=== PATIENT | male | born 1975 | race Caucasian/White ===

== ENCOUNTER 2017-06-01 18:57 | Inpatient (IN) | payer OTHER ==
[~2017-06-01] VITALS: Ht 172.7 cm; Wt 117.0 kg
[2017-06-01 19:21] LABS: POINT-OF-CARE METER ID UU13113747
[2017-06-01 20:46] LABS: CHLORIDE 97 mEq/L (99-109); POTASSIUM 3.9 mEq/L (3.7-5.4); SODIUM 132 mEq/L (136-147)
[2017-06-01 20:48] LABS: GLUCOSE 115 mg/dL (70-99)
[2017-06-01 20:49] LABS: ANION GAP 15 MEQ/L (2-14)
[2017-06-01 20:52] LABS: GFR ESTIMATE (CALCULATED) > 59 mL/min/; UREA NITROGEN (BUN) 14 mg/dL (9-23)
[2017-06-01 21:03] LABS: INFLUENZA A VIRAL ANTIGEN NEGATIVE; INFLUENZA B VIRAL ANTIGEN NEGATIVE
[2017-06-01 21:40] LABS: ANISOCYTOSIS 1+; ATYPICAL LYMPHOCYTE 5.2 %; BAND NEUTROPHILS 22.6 % (0-8.0); BASOPHILS 0.9 %; EOSINOPHIL ABS CT 0.2; EOSINOPHILS 1.7 % (0-5.0); HEMATOCRIT 38.6 % (38.0-50.0); HEMATOLOGY COMMENT 1 SN; INSTRUMENT ABS NEUTROPHIL CT 3.3 K/uL; MCH 27.9 PG (29.0-34.0); MCHC 34.5 G/DL (30.0-36.0); MCV 80.9 FL (86-99); MEAN PLAT.VOLUME 9.4 uM^3 (9.0-12.4); METAMYELOCYTES 3.5 %; NRBC (%) 0.9 /100 WBC (0-0); NUCLEATED RBC'S 0.9; PLAT.SUFFICIENCY DECREASED; PLATELET COUNT 136 K/uL (156-360); RBC DIS.WIDTH-CV 12.8 % (11.8-14.6); RBC DIS.WIDTH-SD 37.3 % (39-53); RED BLOOD COUNT 4.77 M/uL (4.00-5.50); SEG.NEUTROPHILS 19.1 % (46.0-76.0); WHITE BLOOD COUNT 9.7 K/uL (4.1-10.2)
[2017-06-02] MEDS ORDERED: ONDANSETRON HCL8 MG PO (00:36)
[2017-06-02] MEDS ORDERED: LORAZEPAM1 MG PO (00:38)
[2017-06-02] MEDS ORDERED: OXYCODONE HCL15 MG PO (00:43)
[2017-06-02] MEDS ORDERED: ZESTORETIC 10-1 EAC1 PO (00:43)
[2017-06-02] MEDS ORDERED: ATARAX,VISTARIL25 MG PO (00:44)
[2017-06-02] MEDS ORDERED: ESOMEPRAZOLE MA40 MG PO (00:45)
[2017-06-02] MEDS ORDERED: METFORMIN HCL500 MG PO (00:46)
[2017-06-02] MEDS ORDERED: RANITIDINE HCL300 MG PO (00:47)
[2017-06-02] MEDS ORDERED: CITALOPRAM HBR40 MG PO (00:47)
[2017-06-02] MEDS ORDERED: ATARAX,VISTARIL50 MG PO (00:49)
[2017-06-02] MEDS ORDERED: BUSPIRONE HCL10 MG PO (00:49)
[2017-06-02] MEDS ORDERED: ONE DAILY FOR1 EACH PO (00:51)
[2017-06-02] MEDS ORDERED: DULERA 200 MCG/13 GM IH (00:52)
[2017-06-02] MEDS ORDERED: TYLENOL EXTRA500 MG PO (00:53)
[2017-06-02 01:41] VITALS: BP 117/67
[2017-06-02 03:55] VITALS: BP 133/75
[2017-06-02 06:08] LABS: HEMATOCRIT 34.8 % (38.0-50.0); MCH 28.7 PG (29.0-34.0); MCHC 34.5 G/DL (30.0-36.0); MCV 83.3 FL (86-99); MEAN PLAT.VOLUME 10.1 uM^3 (9.0-12.4); NRBC (%) 0.3 /100 WBC (0-0); PLATELET COUNT 114 K/uL (156-360); RBC DIS.WIDTH-CV 13.1 % (11.8-14.6); RBC DIS.WIDTH-SD 39.3 % (39-53); RED BLOOD COUNT 4.18 M/uL (4.00-5.50); WHITE BLOOD COUNT 11.5 K/uL (4.1-10.2)
[2017-06-02 06:40] LABS: ALKALINE PHOSPHATASE 81 IU/L (3-129); ANION GAP 11 MEQ/L (2-14); CHLORIDE 100 MEQ/L (99-109); GFR ESTIMATE (CALCULATED) > 59 mL/min/; GLUCOSE 112 mg/dL (70-99); POTASSIUM 3.8 MEQ/L (3.7-5.4); SAMPLE HEMOLYSIS CHECK 0; SAMPLE ICTERIC CHECK 0; SAMPLE LIPEMIA CHECK 0; SODIUM 134 MEQ/L (136-147); TOTAL BILIRUBIN 0.5 MG/DL (0.0-1.0); UREA NITROGEN (BUN) 14 mg/dL (9-23)
[2017-06-02 06:44] LABS: POINT-OF-CARE METER ID UU13113774
[2017-06-02 06:49] LABS: Estimated Average Glucose 131 mg/dL (70-123); HEMOGLOBIN A1c (GLYCOHEMOGLOB) 6.2 % HGB (Below 5.7)
[2017-06-02 08:08] VITALS: BP 131/70
[2017-06-02 11:47] LABS: POINT-OF-CARE METER ID UU13113774
[2017-06-02 12:27] VITALS: BP 128/68
[2017-06-02 16:35] LABS: POINT-OF-CARE METER ID UU13113725
[2017-06-02 16:45] VITALS: BP 95/62
[2017-06-02 19:45] VITALS: BP 117/58
[2017-06-02 22:52] LABS: HEMATOCRIT 32.7 % (38.0-50.0); MCH 28.4 PG (29.0-34.0); MCHC 34.3 G/DL (30.0-36.0); MCV 82.8 FL (86-99); MEAN PLAT.VOLUME 9.6 uM^3 (9.0-12.4); NRBC (%) 0.3 /100 WBC (0-0); PLATELET COUNT 90 K/uL (156-360); RBC DIS.WIDTH-CV 12.9 % (11.8-14.6); RBC DIS.WIDTH-SD 38.5 % (39-53); RED BLOOD COUNT 3.95 M/uL (4.00-5.50); WHITE BLOOD COUNT 15.7 K/uL (4.1-10.2)
[2017-06-02 23:03] LABS: CHLORIDE 102 mEq/L (99-109); POTASSIUM 3.8 mEq/L (3.7-5.4); SODIUM 134 mEq/L (136-147)
[2017-06-02 23:05] LABS: GLUCOSE 104 mg/dL (70-99)
[2017-06-02 23:06] LABS: ANION GAP 13 MEQ/L (2-14)
[2017-06-02 23:07] LABS: TOTAL BILIRUBIN 0.4 mg/dL (0.0-1.0)
[2017-06-02 23:09] LABS: ALKALINE PHOSPHATASE 82 IU/L (3-129); GFR ESTIMATE (CALCULATED) > 59 mL/min/
[2017-06-02 23:10] LABS: UREA NITROGEN (BUN) 13 mg/dL (9-23)
[2017-06-03] VITALS (10 sets, daily range): BP systolic 110–158; BP diastolic 62–135
[2017-06-03 06:13] LABS: POINT-OF-CARE METER ID UU13113725
[2017-06-03 10:58] LABS: POINT-OF-CARE METER ID UU13113774
[2017-06-03 11:11] LABS: HEMATOCRIT 35.5 % (38.0-50.0); MCH 28.6 PG (29.0-34.0); MCHC 34.1 G/DL (30.0-36.0); MCV 83.9 FL (86-99); MEAN PLAT.VOLUME 9.6 uM^3 (9.0-12.4); NRBC (%) 0.2 /100 WBC (0-0); PLATELET COUNT 79 K/uL (156-360); RBC DIS.WIDTH-CV 13.1 % (11.8-14.6); RBC DIS.WIDTH-SD 39.1 % (39-53); RED BLOOD COUNT 4.23 M/uL (4.00-5.50)
[2017-06-03 17:39] LABS: METH RESISTANT S AUREUS PCR NEGATIVE (NEGATIVE)
[2017-06-03 17:41] LABS: PROBE CHECK PASS; SPECIMEN PROCESSING CONTROL PASS
[2017-06-03 21:28] LABS: BASE EXCESS -2.6 mEq/L (-3 to +3); BICARBONATE 23.7 mEq/L (22-26); CARBOXY HGB 0.5 % (0-5); METHEMOGLOBIN 0.8 % (0-1.5); PCO2 46 mm Hg (35-45); PO2 180 mm Hg (80-100); pH 7.32 (7.35-7.45)
[2017-06-03 21:29] LABS: COMMENTS - BLOOD GASES C+; DEVICE VENT; FI02 100 %; MECHANICAL RATE 14 resp/min; MODE AC; PEEP 5 CM/H20; SITE RR; TIDAL VOLUME 500 ML; TOTAL RESP RATE 14 resp/min
[2017-06-03 21:44] LABS: HEMATOCRIT 36.8 % (38.0-50.0); MCH 27.7 PG (29.0-34.0); MCHC 32.9 G/DL (30.0-36.0); MCV 84.2 FL (86-99); RBC DIS.WIDTH-CV 12.9 % (11.8-14.6); RBC DIS.WIDTH-SD 38.9 % (39-53); RED BLOOD COUNT 4.37 M/uL (4.00-5.50); WHITE BLOOD COUNT 19.6 K/uL (4.1-10.2)
[2017-06-03 22:01] LABS: ALKALINE PHOSPHATASE 89 IU/L (3-129); ANION GAP 11 MEQ/L (2-14); CHLORIDE 102 MEQ/L (99-109); GFR ESTIMATE (CALCULATED) > 59 mL/min/; GLUCOSE 132 mg/dL (70-99); MAGNESIUM 1.9 mg/dl (1.3-2.7); SAMPLE HEMOLYSIS CHECK 0; SAMPLE ICTERIC CHECK 0; SAMPLE LIPEMIA CHECK 0; SODIUM 136 MEQ/L (136-147); TOTAL BILIRUBIN 0.4 MG/DL (0.0-1.0); TRIGLYCERIDES 228 MG/DL (Normal: <150); UREA NITROGEN (BUN) 12 mg/dL (9-23)
[2017-06-03 22:08] LABS: INTER. NORMALIZED RATIO 1.3; PROTHROMBIN TIME 13.9 SEC (10.2-12.9)
[2017-06-03 22:11] LABS: PTT 27.9 SEC (25-37)
[2017-06-03 22:41] LABS: ABS NEUTROPHIL COUNT 11.4; ANISOCYTOSIS 1+; EOSINOPHIL ABS CT 0; MACROCYTES 1+; MEAN PLAT.VOLUME 9.9 uM^3 (9.0-12.4); PLATELET COUNT 92 K/uL (156-360); POLYCHROMASIA 1+
[2017-06-03 23:16] LABS: POINT-OF-CARE METER ID UU14314082
[2017-06-04] VITALS (20 sets, daily range): BP systolic 101–178; BP diastolic 55–104
[2017-06-04 05:18] LABS: HEMATOCRIT 31.9 % (38.0-50.0); MCH 27.7 PG (29.0-34.0); MCHC 32.6 G/DL (30.0-36.0); MCV 84.8 FL (86-99); MEAN PLAT.VOLUME 9.8 uM^3 (9.0-12.4); NRBC (%) 0.7 /100 WBC (0-0); PLATELET COUNT 75 K/uL (156-360); RBC DIS.WIDTH-CV 13.2 % (11.8-14.6); RBC DIS.WIDTH-SD 39.5 % (39-53); RED BLOOD COUNT 3.76 M/uL (4.00-5.50); WHITE BLOOD COUNT 12.6 K/uL (4.1-10.2)
[2017-06-04 05:57] LABS: ANION GAP 8 MEQ/L (2-14); CHLORIDE 106 MEQ/L (99-109); GFR ESTIMATE (CALCULATED) > 59 mL/min/; GLUCOSE 110 mg/dL (70-99); POTASSIUM 3.7 MEQ/L (3.7-5.4); SAMPLE HEMOLYSIS CHECK 0; SAMPLE ICTERIC CHECK 0; SAMPLE LIPEMIA CHECK 0; SODIUM 139 MEQ/L (136-147); UREA NITROGEN (BUN) 11 mg/dL (9-23)
[2017-06-04 07:49] LABS: ABS NEUTROPHIL COUNT 7.7; ANISOCYTOSIS 1+; EOSINOPHIL ABS CT 0; INSTRUMENT ABS NEUTROPHIL CT 5.9 K/uL; PLAT.SUFFICIENCY DECREASED
[2017-06-04 13:26] LABS: CSF LDH 23 IU/L
[2017-06-04 13:35] LABS: APPEARANCE CLEAR/COLORLESS
[2017-06-04 13:36] LABS: RED CELL AREA COUNTED 18; RED CELL COUNT 282 /MM^3 (0-1); RED CELL DILUTION 1
[2017-06-04 13:37] LABS: WBC AREA COUNTED 18; WBC DILUTION 1; WHITE CELL COUNT 153 /MM^3 (0-5); WHITE CELL RAW COUNT 276
[2017-06-04 13:38] LABS: APPEARANCE (RECHECK) CLEAR/COLORLESS; CSF TUBE NUMBER (RECHECK) TUBE #1; RED CELL AREA COUNTED 18; RED CELL COUNT (RECHECK) 1 /MM^3 (0-1); RED CELL DILUTION 1
[2017-06-04 14:06] LABS: CSF EOSINOPHILS 0 % (0-25); MONO RAW COUNT 98; MONONUCLEAR WBC'S 98 % (50-90); POLY RAW COUNT 2; POLYNUCLEAR WBC'S 2 % (0-3)
[2017-06-04 14:20] LABS: POINT-OF-CARE METER ID UU14314082
[2017-06-04 16:39] LABS: POINT-OF-CARE METER ID UU14314082
[2017-06-04 21:19] LABS: POINT-OF-CARE METER ID UU14162636
[2017-06-05] VITALS (23 sets, daily range): BP systolic 100–137; BP diastolic 54–95
[2017-06-05 05:59] LABS: HEMATOCRIT 28.3 % (38.0-50.0); MCH 29.4 PG (29.0-34.0); MCHC 33.6 G/DL (30.0-36.0); MCV 87.6 FL (86-99); MEAN PLAT.VOLUME 10.6 uM^3 (9.0-12.4); NRBC (%) 0.8 /100 WBC (0-0); PLATELET COUNT 53 K/uL (156-360); RBC DIS.WIDTH-CV 13.5 % (11.8-14.6); RBC DIS.WIDTH-SD 42.4 % (39-53); RED BLOOD COUNT 3.23 M/uL (4.00-5.50); WHITE BLOOD COUNT 7.5 K/uL (4.1-10.2)
[2017-06-05 06:39] LABS: ANION GAP 4 MEQ/L (2-14); CHLORIDE 110 MEQ/L (99-109); GFR ESTIMATE (CALCULATED) > 59 mL/min/; GLUCOSE 107 mg/dL (70-99); MAGNESIUM 2.1 mg/dl (1.3-2.7); POTASSIUM 3.7 MEQ/L (3.7-5.4); SAMPLE HEMOLYSIS CHECK 0; SAMPLE ICTERIC CHECK 0; SAMPLE LIPEMIA CHECK 0; SODIUM 140 MEQ/L (136-147); TRIGLYCERIDES 326 MG/DL (Normal: <150); UREA NITROGEN (BUN) 8 mg/dL (9-23)
[2017-06-05 07:12] LABS: EOSINOPHIL ABS CT 0.1; INSTRUMENT ABS NEUTROPHIL CT 3.4 K/uL; PLAT.SUFFICIENCY DECREASED
[2017-06-05 11:53] LABS: POINT-OF-CARE METER ID UU13113748
[2017-06-05 16:06] LABS: POINT-OF-CARE METER ID UU13113748
[2017-06-05 23:45] LABS: POINT-OF-CARE METER ID UU14314083
[2017-06-06] VITALS (21 sets, daily range): BP systolic 109–162; BP diastolic 54–112
[2017-06-06 05:01] LABS: POINT-OF-CARE METER ID UU14162636
[2017-06-06 08:53] LABS: HEMATOCRIT 34.6 % (38.0-50.0); MCH 29.2 PG (29.0-34.0); MCHC 32.9 G/DL (30.0-36.0); MCV 88.5 FL (86-99); MEAN PLAT.VOLUME 10.2 uM^3 (9.0-12.4); NRBC (%) 0.5 /100 WBC (0-0); RBC DIS.WIDTH-CV 13.7 % (11.8-14.6); WHITE BLOOD COUNT 10.4 K/uL (4.1-10.2)
[2017-06-06 08:57] LABS: PLATELET COUNT 78 K/uL (156-360); RED BLOOD COUNT 3.91 M/uL (4.00-5.50)
[2017-06-06 09:08] LABS: ABS NEUTROPHIL COUNT 6.5; ANISOCYTOSIS 1+; BASOPHILS 0.9 %; EOSINOPHIL ABS CT 0; INSTRUMENT ABS NEUTROPHIL CT 4.5 K/uL; LYMPHOCYTES 14.9 % (15.0-45.0); MACROCYTES 1+; MICROCYTOSIS 1+; MYELOCYTES 8.8 %; NUCLEATED RBC'S 0.9; PLAT.SUFFICIENCY DECREASED; SEG.NEUTROPHILS 48.3 % (46.0-76.0)
[2017-06-06 09:11] LABS: ANION GAP 7 MEQ/L (2-14); CHLORIDE 110 MEQ/L (99-109); GFR ESTIMATE (CALCULATED) > 59 mL/min/; GLUCOSE 125 mg/dL (70-99); POTASSIUM 3.7 MEQ/L (3.7-5.4); SAMPLE HEMOLYSIS CHECK 0; SAMPLE ICTERIC CHECK 0; SAMPLE LIPEMIA CHECK 0; SODIUM 146 MEQ/L (136-147); UREA NITROGEN (BUN) 8 mg/dL (9-23)
[2017-06-06 13:11] LABS: POINT-OF-CARE METER ID UU14162636
[2017-06-06 16:01] LABS: CMV DNA QN REAL TIME PCR <200 IU/mL (<200)
[2017-06-06 18:51] LABS: POINT-OF-CARE METER ID UU14162636
[2017-06-07] VITALS (18 sets, daily range): BP systolic 137–161; BP diastolic 66–109
[2017-06-07 00:04] LABS: POINT-OF-CARE METER ID UU14162636
[2017-06-07 05:15] LABS: POINT-OF-CARE METER ID UU13113803
[2017-06-07 05:40] LABS: HEMATOCRIT 31.7 % (38.0-50.0); MCH 27.8 PG (29.0-34.0); MCHC 32.8 G/DL (30.0-36.0); MCV 84.8 FL (86-99); MEAN PLAT.VOLUME 10.6 uM^3 (9.0-12.4); NRBC (%) 0.3 /100 WBC (0-0); PLATELET COUNT 96 K/uL (156-360); RBC DIS.WIDTH-CV 12.9 % (11.8-14.6); RBC DIS.WIDTH-SD 38.9 % (39-53); RED BLOOD COUNT 3.74 M/uL (4.00-5.50); WHITE BLOOD COUNT 9.5 K/uL (4.1-10.2)
[2017-06-07 06:05] LABS: ANION GAP 8 MEQ/L (2-14); CHLORIDE 109 MEQ/L (99-109); GFR ESTIMATE (CALCULATED) > 59 mL/min/; GLUCOSE 102 mg/dL (70-99); POTASSIUM 4.1 MEQ/L (3.7-5.4); SAMPLE HEMOLYSIS CHECK 0; SAMPLE ICTERIC CHECK 0; SAMPLE LIPEMIA CHECK 0; SODIUM 144 MEQ/L (136-147); UREA NITROGEN (BUN) 10 mg/dL (9-23)
[2017-06-07 06:08] LABS: ABS NEUTROPHIL COUNT 7.4; ANISOCYTOSIS 1+; ATYPICAL LYMPHOCYTE 2.7 %; BAND NEUTROPHILS 8.9 % (0-8.0); BASOPHILS 1.8 %; EOSINOPHIL ABS CT 0.1; EOSINOPHILS 0.9 % (0-5.0); INSTRUMENT ABS NEUTROPHIL CT 5.9 K/uL; LYMPHOCYTES 4.5 % (15.0-45.0); METAMYELOCYTES 4.5 %; MICROCYTOSIS 1+; MYELOCYTES 5.3 %; PLAT.SUFFICIENCY DECREASED; SPHEROCYTES 2+
[2017-06-07 06:11] LABS: SEG.NEUTROPHILS 68.7 % (46.0-76.0)
[2017-06-07 13:11] LABS: POINT-OF-CARE METER ID UU14208751
[2017-06-08] VITALS (7 sets, daily range): BP systolic 136–184; BP diastolic 86–101
[2017-06-08 01:29] LABS: POINT-OF-CARE METER ID UU14208751; POINT-OF-CARE USER ID PHATLC
[2017-06-08 06:26] LABS: POINT-OF-CARE METER ID UU14314083
[2017-06-08 08:19] LABS: POINT-OF-CARE METER ID UU14208751
[2017-06-08 12:49] LABS: POINT-OF-CARE METER ID UU14208751
[2017-06-08 17:44] LABS: POINT-OF-CARE METER ID UU14314083
[2017-06-08 22:12] LABS: POINT-OF-CARE METER ID UU14162636
[2017-06-09 09:00] VITALS: BP 120/97
[2017-06-09 09:13] LABS: POINT-OF-CARE METER ID UU14314083
[2017-06-09] MEDS ORDERED: VALTREX1000 MG PO ×2 (09:51→10:17)
[2017-06-14 13:42] LABS: HSV CSF Spec Source Serum (())
== END 2017-06-09 11:00 | disposition home or self-care (01) | DRG 314 ==
LOC: EME 18:57 → EDOF 23:51 → 4WEST 23:51 → 5EAST 23:51 → ENRESERV 23:55 → 5EAST 06-02 01:25 → ENRESERV 06-03 15:27 → 4WEST 06-03 16:00 → ENRESERV 06-08 16:24 → CANRESERV 06-09 09:52 → ENRESERV 06-09 09:52 → 4WEST 06-09 11:00
PROVIDERS: Emergency Medicine; Hospitalist; Internal Medicine; Internal Medicine Critical Care Medicine; Internal Medicine Pulmonary Disease; Nurse Practitioner Acute Care; Specialist
PROC: 009U3ZX Drainage of Spinal Canal, Percutaneous Approach, Diagnostic (ICD-10-PCS; principal; 2017-06-04)
PROC: 05HM33Z Insertion of Infusion Device into Right Internal Jugular Vein, Percutaneous Approach (ICD-10-PCS; 2017-06-04)
PROC: 0BH17EZ Insertion of Endotracheal Airway into Trachea, Via Natural or Artificial Opening (ICD-10-PCS; 2017-06-04)
PROC: 5A1945Z Respiratory Ventilation, 24-96 Consecutive Hours (ICD-10-PCS; 2017-06-04)
DX: T80.212A Local infection due to central venous catheter, initial encounter (principal); A41.9 Sepsis, unspecified organism; J96.01 Acute respiratory failure with hypoxia; G93.41 Metabolic encephalopathy; B00.4 Herpesviral encephalitis; C81.10 Nodular sclerosis Hodgkin lymphoma, unspecified site; R17 Unspecified jaundice; E87.1 Hypo-osmolality and hyponatremia; F05 Delirium due to known physiological condition; D69.6 Thrombocytopenia, unspecified; E66.01 Morbid (severe) obesity due to excess calories; E11.9 Type 2 diabetes mellitus without complications; F41.9 Anxiety disorder, unspecified; D70.1 Agranulocytosis secondary to cancer chemotherapy; R50.81 Fever presenting with conditions classified elsewhere; D89.9 Disorder involving the immune mechanism, unspecified; I10 Essential (primary) hypertension; J45.909 Unspecified asthma, uncomplicated; Y84.8 Other medical procedures as the cause of abnormal reaction of the patient, or of later complication, without mention of misadventure at the time of the procedure; Z88.5 Allergy status to narcotic agent; Z88.6 Allergy status to analgesic agent; Z68.39 Body mass index [BMI] 39.0-39.9, adult; Z79.84 Long term (current) use of oral hypoglycemic drugs; Z79.899 Other long term (current) drug therapy; Z82.49 Family history of ischemic heart disease and other diseases of the circulatory system
CPT/HCPCS: 36600; 62270; 70450; 70553; 71010; 77003; 80048; 80053; 80202; 81003; 82140; 82803; 82945; 82948; 83036; 83605; 83615 91; 83735; 83880; 84100; 84157; 84478; 85025; 85027; 85610; 85730; 86617 90; 86618 90; 86664; 86665; 86777 90; 86778 90; 87040; 87070; 87102; 87205; 87497 90; 87502; 87529 90; 87641; 87798 90; 87899; 88108; 89051; 94002; 94003; 94640; 94640 76; 94760; 95819; 97530 GP; 99202; 99281; 99285; C1751; J0133; J0290; J0330; J0692; J1450; J1630; J1650; J1815; J1940; J2060; J2250; J2270; J2704; J3370; J3411; J3480; J7030; J7050; Q0177; S0028